=== PATIENT | female | born 1985 | race Caucasian/White ===

== ENCOUNTER 2020-08-21 01:33 | Outpatient (CLI) | payer MEDICAID, SELFPAY ==
--- NOTE | 2020-08-26 16:45 | PDOC.EEG_ITS ---
Neurology EEG EEG: [facility] Department of Neurology LONG-TERM AMBULATORY EEG REPORT Date of Recordin08/21/20 at 15:45:01 to 08/22/20 at 21:31:44 Interpreting Physician: Dr. Jossie Nguyen PCP/Referring Provider: Dr. Jak Monet Reason for study: Ms. Perez is a 35 year-old woman with new onset seizure. Current Medications: Home Medications Medication Instructions Recorded Confirmed Type dextroamphetamine-amphetamine 30 30 mg PO TID tab 05/26/20 06/30/20 History mg tablet gabapentin 300 mg capsule 300 mg PO QHS 05/26/20 06/30/20 History sumatriptan succinate 100 mg tablet See Rx Instructions PO .COMPLEX 05/26/20 06/30/20 History levetiracetam 500 mg tablet 500 mg PO BID #60 tab 06/30/20 06/30/20 Rx METHODS: An 18-channel digitized electroencephalogram was recorded in the ambulatory setting with video. The 10/20 international system of electrode placement was used and bipolar and referential electrode montages were recorded. In addition to EEG the patient was monitored for EKG and by video. Activation procedures of photic stimulation and hyperventilation were performed if applicable. The duration of the recording was ~30 hours. DESCRIPTION OF EEG: Waking background activity: During maximal wakefulness a 10-Hz posterior background rhythm was present which was well-modulated, symmetrical, reactive to eye opening, and of moderate voltage. Faster frequencies were present in the bilateral anterior head regions. There was a normal anterior-posterior voltage gradient. Drowsy and sleeping background activity: During drowsiness, there was attenuation of the posterior dominant background rhythm and vertex waves. Normal stage II and III sleep was present with symmetrical sleep spindles, K- complexes, and vertex waves with slowing of the background rhythm to delta/theta frequencies. REM sleep manifested by rapid lateral eye movements and faster background rhythms was recorded. Arousal was unremarkable. Interictal abnormalities: Rare, left temporal (F7), moderate-amplitude spike- waves, most prominent in sleep. Ictal findings: No events captured. Activating Procedures: Photic stimulation was performed which produced no posterior driving response. Hyperventilation was performed with moderate effort and produced no physiological slowing of the background. EKG: EKG revealed normal sinus rhythm. INTERPRETATION: This long-term EEG is abnormal due to rare, left temporal (F7) spike-waves. 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 Clinical correlation is advised. Jossie Nguyen MD
== END 2020-08-21 01:53 ==
PROVIDERS: Visit Provider Psychiatry & Neurology Neurology
DX: G40.209 Localization-related (focal) (partial) symptomatic epilepsy and epileptic syndromes with complex partial seizures, not intractable, without status epilepticus (principal)
CPT/HCPCS: 95714